=== PATIENT | female | born 1955 | race Caucasian/White ===

== ENCOUNTER 2024-06-07 21:09 | Emergency (ER) | payer MEDICARE ==
[~2024-06-07] VITALS: Ht 165.1 cm; Wt 69.7 kg
[2024-06-07] MEDS: HYDROcodone/acetaminophen 10/325mg tab PO ONE (23:58)
[2024-06-07] MEDS: ondansetron 4mg rapidly disintigrating tab PO ONE (23:58)
[2024-06-08 01:35] VITALS: BP 158/78; PULSE 84; RESP 16; TEMP 98.1; O2SAT 95
== END 2024-06-08 01:38 | disposition home or self-care (01) ==
LOC: ER 21:10
DX: S22.41XA Multiple fractures of ribs, right side, initial encounter for closed fracture (principal); G89.11 Acute pain due to trauma; W18.30XA Fall on same level, unspecified, initial encounter; Y93.89 Activity, other specified; Y92.89 Other specified places as the place of occurrence of the external cause; Y99.8 Other external cause status
CPT/HCPCS: 71250; 99284

== ENCOUNTER 2024-09-29 10:39 | Emergency (ER) | payer MEDICARE, MEDICAID ==
[~2024-09-29] VITALS: Ht 167.6 cm; Wt 83.6 kg
[2024-09-29 10:52] VITALS: BP 123/105; PULSE 83; RESP 18; TEMP 98.3; O2SAT 98
[2024-09-29] MEDS ORDERED: EMPA25TA PO (11:29)
[2024-09-29] MEDS ORDERED: ROSU20TA98 PO (11:29)
[2024-09-29] MEDS ORDERED: LOSA100T58 PO (11:29)
[2024-09-29] MEDS ORDERED: HYDR12.55 PO (11:29)
[2024-09-29] MEDS ORDERED: LEVO112C4 PO (11:29)
[2024-09-29] MEDS ORDERED: INSU200I4 SQ (11:29)
[2024-09-29] MEDS ORDERED: GLIP10TA18 PO (11:29)
== END 2024-09-29 11:37 | disposition home or self-care (01) ==
LOC: ER 10:40
DX: Z76.0 Encounter for issue of repeat prescription (principal); I10 Essential (primary) hypertension; E11.9 Type 2 diabetes mellitus without complications
CPT/HCPCS: 99281